=== PATIENT | male | born 1970 | race African-American/Black ===

== ENCOUNTER 2020-12-19 21:27 | Observation (INO) | payer OTHER ==
[2020-12-19 21:34] VITALS: BMI 36.9
[2020-12-20 00:02] LABS: BASO % 0.5 % (0-2.0); EOS % 0.8 % (0-4.5); HEMATOCRIT 53.1 % (35.4-49); HEMOGLOBIN 18.1 GM/dL (11.7-16.9); MCH 30.5 pg (25.7-33.7); MCHC 34.2 g/dl (32.0-35.9); MEAN CELL VOLUME 89.2 fl (80-96); MEAN PLT VOLUME 8.3 fl (7.5-11.1); MONO % 15.9 % (3.8-10.2); NEUT % 47.8 % (42.8-82.8); PLATELET COUNT 199 K/MM3 (134-434); RBC 5.95 M/mm3 (4.00-5.60); RDW 15.3 % (11.9-15.9); WHITE BLOOD COUNT 8.2 K/mm3 (4.0-10.0)
[2020-12-20 00:34] LABS: POTASSIUM 3.6 mmol/L (3.5-5.1)
[2020-12-20 00:36] LABS: ALBUMIN 3.7 g/dl (3.4-5.0); BLOOD UREA NITROGEN 14.8 mg/dL (7-18); CALCIUM 9.3 mg/dL (8.5-10.1)
[2020-12-20 00:39] LABS: CREATININE 1.7 mg/dL (0.55-1.3)
[2020-12-20] MEDS ORDERED: SODIUM CHLORIDE 0.9% 500 ML INFUS.BAG IV ONE ×2 (00:40→02:54)
[2020-12-20] MEDS ORDERED: chlordiazePOXIDE HCL 25 MG CAPSULE PO ONE (00:40)
[2020-12-20 00:41] LABS: BILIRUBIN,TOTAL 1.4 mg/dL (0.2-1)
[2020-12-20] MEDS ORDERED: chlordiazePOXIDE HCL 25 MG CAPSULE ONE ×4 (01:00→22:47)
[2020-12-20 02:13] LABS: PLATELET ESTIMATE NORMAL
[2020-12-20 02:40] LABS: CALCIUM 8.8 mg/dL (8.5-10.1)
[2020-12-20 02:41] LABS: BLOOD UREA NITROGEN 17.5 mg/dL (7-18)
[2020-12-20 02:44] LABS: CREATININE 1.6 mg/dL (0.55-1.3)
[2020-12-20 03:21] LABS: POTASSIUM 3.5 mmol/L (3.5-5.1)
[2020-12-20] MEDS ORDERED: ASPIRIN 81 MG CHEWABLE TABLETS PO ONE (07:36)
[2020-12-20] MEDS ORDERED: SODIUM CHLORIDE 1,000 ML IV STA (07:37)
[2020-12-20] MEDS ORDERED: FOLIC ACID INJECTION - 1 MG, THIAMINE HCL 100 MG, MULTIVIT INJECTION ADULT 10 ML in SOD... IVPB ONE (09:02)
[2020-12-20] MEDS ORDERED: chlordiazePOXIDE HCL 25 MG CAPSULE PO PRN (09:03)
[2020-12-20] MEDS ORDERED: ASPIRIN 81 MG CHEWABLE TABLETS ONE (10:12)
[2020-12-20 10:17] LABS: N-TERMINAL BNP 990.5 pg/ml (5-125)
[2020-12-20] MEDS ORDERED: CYCLOBENZAPRINE HCL 10 MG TABLET (FP) PO PRN (10:20)
[2020-12-20] MEDS: chlordiazePOXIDE HCL 25 MG CAPSULE PO SCH ×3 (10:27→22:53)
[2020-12-20] MEDS ORDERED: METOPROLOL TARTRATE 25 MG TABLET (FP) ONE ×2 (12:20→21:14)
[2020-12-20] MEDS: METOPROLOL TARTRATE 25 MG TABLET (FP) PO SCH ×2 (13:33→21:35)
[2020-12-20] MEDS: SACUBITRIL/VALSARTAN 97 MG-103 MG TABLET PO SCH ×2 (13:33→21:34)
[2020-12-20] MEDS ORDERED: FUROSEMIDE 40 MG TABLET (FP) ONE (14:32)
[2020-12-20] MEDS: FUROSEMIDE 40 MG TABLET (FP) PO SCH (14:36)
[2020-12-20] MEDS: RIVAROXABAN 20 MG TABLET PO SCH (18:39)
[2020-12-21] MEDS: FUROSEMIDE 40 MG TABLET (FP) PO SCH ×2 (06:35→13:28)
[2020-12-21] MEDS: chlordiazePOXIDE HCL 25 MG CAPSULE PO SCH ×4 (06:35→22:59)
[2020-12-21 07:24] LABS: EOS % 4.4 % (0-4.5); HEMATOCRIT 48.4 % (35.4-49); HEMOGLOBIN 16.4 GM/dL (11.7-16.9); LYMPH % 42.7 % (8-40); MCH 30.2 pg (25.7-33.7); MCHC 33.8 g/dl (32.0-35.9); MEAN CELL VOLUME 89.3 fl (80-96); MEAN PLT VOLUME 8.2 fl (7.5-11.1); MONO % 14.5 % (3.8-10.2); NEUT % 37.4 % (42.8-82.8); PLATELET COUNT 152 K/MM3 (134-434); RBC 5.42 M/mm3 (4.00-5.60); RDW 15.3 % (11.9-15.9); WHITE BLOOD COUNT 5.2 K/mm3 (4.0-10.0)
[2020-12-21 07:41] LABS: POTASSIUM 3.5 mmol/L (3.5-5.1)
[2020-12-21 07:43] LABS: ALBUMIN 3.3 g/dl (3.4-5.0); CALCIUM 8.6 mg/dL (8.5-10.1)
[2020-12-21 07:44] LABS: BLOOD UREA NITROGEN 15.3 mg/dL (7-18); MAGNESIUM 1.1 mg/dL (1.8-2.4)
[2020-12-21 07:47] LABS: CREATININE 0.9 mg/dL (0.55-1.3); PHOSPHOROUS 3.2 mg/dL (2.5-4.9)
[2020-12-21 07:48] LABS: BILIRUBIN,TOTAL 1.7 mg/dL (0.2-1); TOT PROT 6.2 g/dl (6.4-8.2)
[2020-12-21] MEDS: METOPROLOL TARTRATE 25 MG TABLET (FP) PO SCH ×2 (09:11→23:00)
[2020-12-21] MEDS: THIAMINE HCL 100 MG TABLET (FP) PO SCH (09:11)
[2020-12-21] MEDS: FOLIC ACID 1 MG TABLET (FP) PO SCH (09:11)
[2020-12-21] MEDS: ASPIRIN 81 MG CHEWABLE TABLETS PO SCH (09:11)
[2020-12-21] MEDS: MULTIVITAMINS (DAILY MVI) TABLET (FP) PO SCH (09:12)
[2020-12-21] MEDS: SACUBITRIL/VALSARTAN 97 MG-103 MG TABLET PO SCH ×2 (09:12→23:00)
[2020-12-21] MEDS ORDERED: MAGNESIUM SULF 50% (8.12 MEQ/2 ML-1 GM VIAL) IVPB ONE ×2 (10:08→11:30)
[2020-12-21] MEDS: RIVAROXABAN 20 MG TABLET PO SCH (18:17)
[2020-12-22] MEDS: chlordiazePOXIDE HCL 25 MG CAPSULE PO SCH ×3 (05:27→17:32)
[2020-12-22] MEDS: THIAMINE HCL 100 MG TABLET (FP) PO SCH (09:20)
[2020-12-22] MEDS: FOLIC ACID 1 MG TABLET (FP) PO SCH (09:21)
[2020-12-22] MEDS: SACUBITRIL/VALSARTAN 97 MG-103 MG TABLET PO SCH (09:22)
[2020-12-22] MEDS: METOPROLOL TARTRATE 25 MG TABLET (FP) PO SCH (09:22)
[2020-12-22] MEDS: MULTIVITAMINS (DAILY MVI) TABLET (FP) PO SCH (09:22)
[2020-12-22] MEDS: ASPIRIN 81 MG CHEWABLE TABLETS PO SCH (09:22)
[2020-12-22 09:28] LABS: HEMATOCRIT 48.1 % (35.4-49); HEMOGLOBIN 16.1 GM/dL (11.7-16.9); MCH 30.2 pg (25.7-33.7); MCHC 33.5 g/dl (32.0-35.9); MEAN CELL VOLUME 90.1 fl (80-96); MEAN PLT VOLUME 8.7 fl (7.5-11.1); PLATELET COUNT 163 K/MM3 (134-434); RBC 5.34 M/mm3 (4.00-5.60); RDW 14.9 % (11.9-15.9); WHITE BLOOD COUNT 4.1 K/mm3 (4.0-10.0)
[2020-12-22 09:52] LABS: POTASSIUM 3.6 mmol/L (3.5-5.1)
[2020-12-22] MEDS ORDERED: FUROSEMIDE 40 MG TABLET (FP) PO SCH (10:00)
[2020-12-22 10:21] LABS: CALCIUM 8.7 mg/dL (8.5-10.1)
[2020-12-22 10:22] LABS: ALBUMIN 3.2 g/dl (3.4-5.0); BLOOD UREA NITROGEN 16.9 mg/dL (7-18); MAGNESIUM 1.5 mg/dL (1.8-2.4)
[2020-12-22 10:24] LABS: CREATININE 0.9 mg/dL (0.55-1.3); PHOSPHOROUS 4.1 mg/dL (2.5-4.9)
[2020-12-22 10:26] LABS: BILIRUBIN,TOTAL 1.4 mg/dL (0.2-1)
[2020-12-22] MEDS ORDERED: MAGNESIUM SULF 50% (8.12 MEQ/2 ML-1 GM VIAL) IVPB ONE (12:10)
[2020-12-22 13:16] VITALS: TEMP 97.6
[2020-12-22] MEDS: RIVAROXABAN 20 MG TABLET PO SCH (17:32)
[2020-12-22 17:45] VITALS: BP 143/102; PULSE 83
[2020-12-23] MEDS ORDERED: chlordiazePOXIDE HCL 10 MG CAPSULE PO PRN
[2020-12-23] MEDS ORDERED: chlordiazePOXIDE HCL 10 MG CAPSULE PO SCH (05:00)
[2020-12-24] MEDS ORDERED: chlordiazePOXIDE HCL 10 MG CAPSULE PO SCH (05:00)
== END 2020-12-22 18:59 | disposition other institution (70) ==
LOC: JER 21:27 → INTOOBSV 12-20 07:40 → UNDOADMOB 12-20 07:40 → JERBED 12-20 07:40 → J6WEST-2 12-21 02:23
PROVIDERS: ADMIT Internal Medicine; ATTEND Student in an Organized Health Care Education/Training Program
PROC: 3E033GC Introduction of Other Therapeutic Substance into Peripheral Vein, Percutaneous Approach (ICD-10-PCS; principal; 2020-12-20)
PROC: 3E0337Z Introduction of Electrolytic and Water Balance Substance into Peripheral Vein, Percutaneous Approach (ICD-10-PCS; 2020-12-20)
DX: F10.99 Alcohol use, unspecified with unspecified alcohol-induced disorder (principal); F14.90 Cocaine use, unspecified, uncomplicated; E86.9 Volume depletion, unspecified; R79.89 Other specified abnormal findings of blood chemistry; R06.02 Shortness of breath; R22.40 Localized swelling, mass and lump, unspecified lower limb; I95.9 Hypotension, unspecified; R00.0 Tachycardia, unspecified; N17.9 Acute kidney failure, unspecified; M62.82 Rhabdomyolysis; I50.9 Heart failure, unspecified; M10.9 Gout, unspecified; Z86.718 Personal history of other venous thrombosis and embolism; R25.1 Tremor, unspecified; Z79.01 Long term (current) use of anticoagulants; F17.210 Nicotine dependence, cigarettes, uncomplicated; Z68.36 Body mass index [BMI] 36.0-36.9, adult; E66.9 Obesity, unspecified
CPT/HCPCS: 36415; 70450-TC; 71046-TC-FY; 72125-TC; 80048; 80053; 80307; 82550; 82553; 83735; 83880; 84100; 84443; 84484; 85025; 85027; 93005; 93010; 93306-TC; 96361; 96365; 96375; 96376; 99285-25; C9803; G0378; U0003

== ENCOUNTER 2020-12-22 19:26 | Inpatient (IN) | payer OTHER ==
[2020-12-22] MEDS: SACUBITRIL/VALSARTAN 97 MG-103 MG TABLET PO SCH (02:30)
[2020-12-22 20:47] VITALS: BMI 38.7
[2020-12-22] MEDS ORDERED: MENTHOL/PHENOL 1 EACH UD MM PRN (21:15)
[2020-12-22] MEDS ORDERED: ONDANSETRON *ODT* 4 MG TABLET SL PRN (21:15)
[2020-12-22] MEDS ORDERED: MAG HYDROX/AL HYDROX/SIMETH 30 ML UNIT-DOSE CUP PO PRN (21:15)
[2020-12-22] MEDS ORDERED: ACETAMINOPHEN 325 MG TABLET (FP) PO PRN (21:15)
[2020-12-22] MEDS ORDERED: METHOCARBAMOL 500 MG TABLET PO PRN (21:15)
[2020-12-22] MEDS ORDERED: MAGNESIUM CITRATE 300 ML BOTTLE PO PRN (21:15)
[2020-12-22] MEDS ORDERED: MAGNESIUM HYDROX 2400MG/30ML ORAL SUSPENSION 30 ML CUP PO PRN (21:15)
[2020-12-22] MEDS ORDERED: IBUPROFEN 400 MG TABLET (FP) PO PRN (21:15)
[2020-12-22] MEDS ORDERED: BISMUTH SUBSALICYLATE 524 MG/30 ML UD PO PRN (21:15)
[2020-12-22] MEDS ORDERED: chlordiazePOXIDE HCL 25 MG CAPSULE PO PRN (21:15)
[2020-12-22] MEDS ORDERED: FUROSEMIDE 40 MG TABLET (FP) PO ONE (21:31)
[2020-12-22] MEDS ORDERED: chlordiazePOXIDE HCL 25 MG CAPSULE PO SCH (23:00)
[2020-12-22] MEDS ORDERED: chlordiazePOXIDE HCL 25 MG CAPSULE ONE (23:05)
[2020-12-22] MEDS: METOPROLOL TARTRATE 25 MG TABLET (FP) PO SCH (23:06)
[2020-12-22] MEDS: hydrOXYzine PAMOATE 25 MG CAPSULE (FP) PO SCH (23:06)
[2020-12-22] MEDS: THIAMINE HCL 100 MG TABLET (FP) PO SCH (23:06)
[2020-12-22] MEDS: MELATONIN 5 MG TABLETS PO SCH (23:15)
[2020-12-23] MEDS: hydrOXYzine PAMOATE 25 MG CAPSULE (FP) PO SCH ×5 (06:13→22:21)
[2020-12-23] MEDS: FUROSEMIDE 40 MG TABLET (FP) PO SCH ×2 (06:13→17:24)
[2020-12-23] MEDS: chlordiazePOXIDE HCL 10 MG CAPSULE PO SCH ×4 (06:15→22:21)
[2020-12-23] MEDS: METOPROLOL TARTRATE 25 MG TABLET (FP) PO SCH ×2 (10:34→22:21)
[2020-12-23] MEDS: PRENATAL VITAMINS W/ FOLIC ACID TABLET (FP) PO SCH (10:34)
[2020-12-23] MEDS: SACUBITRIL/VALSARTAN 97 MG-103 MG TABLET PO SCH ×2 (10:34→22:21)
[2020-12-23] MEDS: ASPIRIN 81 MG CHEWABLE TABLETS PO SCH (10:34)
[2020-12-23] MEDS: RIVAROXABAN 20 MG TABLET PO SCH (17:24)
[2020-12-23] MEDS: MELATONIN 5 MG TABLETS PO SCH (22:21)
[2020-12-23] MEDS: THIAMINE HCL 100 MG TABLET (FP) PO SCH (22:21)
[2020-12-24] MEDS ORDERED: chlordiazePOXIDE HCL 10 MG CAPSULE PO PRN
[2020-12-24] MEDS: hydrOXYzine PAMOATE 25 MG CAPSULE (FP) PO SCH ×5 (05:39→22:32)
[2020-12-24] MEDS: chlordiazePOXIDE HCL 10 MG CAPSULE PO SCH ×2 (05:39→17:31)
[2020-12-24] MEDS: FUROSEMIDE 40 MG TABLET (FP) PO SCH ×2 (06:01→17:31)
[2020-12-24] MEDS: ASPIRIN 81 MG CHEWABLE TABLETS PO SCH (10:49)
[2020-12-24] MEDS: METOPROLOL TARTRATE 25 MG TABLET (FP) PO SCH ×2 (10:50→22:32)
[2020-12-24] MEDS: SACUBITRIL/VALSARTAN 97 MG-103 MG TABLET PO SCH ×2 (10:50→22:31)
[2020-12-24] MEDS: PRENATAL VITAMINS W/ FOLIC ACID TABLET (FP) PO SCH (10:50)
[2020-12-24] MEDS: RIVAROXABAN 20 MG TABLET PO SCH (17:31)
[2020-12-24] MEDS: THIAMINE HCL 100 MG TABLET (FP) PO SCH (22:32)
[2020-12-24] MEDS: MELATONIN 5 MG TABLETS PO SCH (22:32)
[2020-12-25] MEDS ORDERED: chlordiazePOXIDE HCL 10 MG CAPSULE PO ONE (05:00)
[2020-12-25] MEDS: hydrOXYzine PAMOATE 25 MG CAPSULE (FP) PO SCH (05:53)
[2020-12-25] MEDS: FUROSEMIDE 40 MG TABLET (FP) PO SCH (06:00)
[2020-12-25 09:05] VITALS: BP 124/68; PULSE 72; TEMP 96.3
== END 2020-12-25 10:01 | disposition home or self-care (01) | DRG 774 ==
LOC: YASAS 19:26 → Y3N 12-23 02:05
PROVIDERS: ADMIT Allergy & Immunology; ATTEND Allergy & Immunology
PROC: HZ2ZZZZ Detoxification Services for Substance Abuse Treatment (ICD-10-PCS; principal; 2020-12-23)
DX: F10.230 Alcohol dependence with withdrawal, uncomplicated (principal); F14.20 Cocaine dependence, uncomplicated; F17.210 Nicotine dependence, cigarettes, uncomplicated; I11.0 Hypertensive heart disease with heart failure; I50.9 Heart failure, unspecified; I82.591 Chronic embolism and thrombosis of other specified deep vein of right lower extremity; M10.9 Gout, unspecified; Z79.01 Long term (current) use of anticoagulants
CPT/HCPCS: 36415; 84132; 86780; C9803; U0003